=== PATIENT | female | born 1975 | race Caucasian/White ===

== ENCOUNTER → 2021-03-23 08:52 | Outpatient (BNVA) | payer BC, SELFPAY | PROVIDERS: Visit Provider Nurse Practitioner Family | DX: R63.5 Abnormal weight gain (principal); E78.5 Hyperlipidemia, unspecified; R53.83 Other fatigue | CPT/HCPCS: 80053; 80061; 84443 ==

== ENCOUNTER → 2021-03-29 14:51 | Outpatient (BNVA) | payer BC, SELFPAY | PROVIDERS: Visit Provider Nurse Practitioner Family | DX: Z12.4 Encounter for screening for malignant neoplasm of cervix (principal) | CPT/HCPCS: 88175 ==

== ENCOUNTER 2021-04-30 07:04 | Outpatient (CLI) | payer BC, SELFPAY ==
--- NOTE | 2021-04-30 07:15 | US_ITS ---
WS: [id number] TRANSABDOMINAL PELVIC AND TRANSVAGINAL PELVIC ULTRASOUND HISTORY: N92.1 - Excessive and frequent menstruation with irregular menses. COMPARISON: None available. Uterus: 12.8 cm x 6.3 cm x 5.5 cm. Mildly enlarged anteverted uterus. No fibroid or mass. Heterogenei ty within the myometrium. No discrete mass. Endometrium: 0.8 cm. Best seen on transverse abdominal imaging. No abnormality identified. There is mild distention of the cervical canal. There are several small cystic areas within the cervi briana canal which could be nabothian cysts. The cervix appears enlarged and distended. Right ovary: 4.2 cm x 3.8 cm x 2.3 cm. No abnormality. Limited as ovary is not well seen transvaginal ly. Left ovary: 3.2 cm x 2.1 cm x 3.3 cm. No abnormality. Limited as ovary is not seen transvaginally. No free fluid. US/US pelvic with transvaginal IMPRESSION: 1. Technically limited evaluation of the uterus and adnexal structures due to body habitus. 2. Multiple small cystic areas along the cervical canal and mild increased sof t tissue. This may be related to nabothian cysts. Due to the increased soft tis morris biopsy is recommended. 3. Poorly visualized endometrium but no abnormality. 4. Enlarged, heterogeneous uterus.
--- NOTE | 2021-04-30 08:30 | MM_ITS ---
WS: [id number] Exam: [id number] Date/Time of Exam: 04/30/2021 8:11 AM Reason For Exam: Z12.31 - Encounter for screening mammogram for malignant ... VIEWS: MLO and CC views both breasts. Comparison made with prior exam of 05/22/2012. Findings: There was no sign of mass, architectural distortion or suspicious calcification in either breast. Int ramammary lymph nodes seen in the lateral left breast. Fatty MM/[place] [id number] Impression: BI-RADS: 2-Benign FOLLOW-UP: 1 Year Follow-up This mammogram was also analyzed by the Computer Aided Detection System R2 Imag e Wire Stitcher Machine.
== END 2021-04-30 07:05 | disposition home or self-care (01) ==
PROVIDERS: PCP Nurse Practitioner Family; Visit Provider Nurse Practitioner Family
DX: N92.1 Excessive and frequent menstruation with irregular cycle (principal); Z12.31 Encounter for screening mammogram for malignant neoplasm of breast; N85.2 Hypertrophy of uterus
CPT/HCPCS: 76830; 76856; 77067

== ENCOUNTER → 2021-10-05 14:39 | Outpatient (BNVA) | payer OTHER, SELFPAY | PROVIDERS: PCP Nurse Practitioner Family; Visit Provider Nurse Practitioner Family | DX: N76.0 Acute vaginitis (principal); B96.89 Other specified bacterial agents as the cause of diseases classified elsewhere | CPT/HCPCS: 81000 ==

== ENCOUNTER → 2023-06-08 11:04 | Outpatient (BNVA) | payer OTHER, SELFPAY | PROVIDERS: PCP Nurse Practitioner Family; Visit Provider Podiatrist Foot & Ankle Surgery | DX: M79.671 Pain in right foot (principal); M72.2 Plantar fascial fibromatosis | CPT/HCPCS: 73630 ==